=== PATIENT | female | born 1950 | race Caucasian/White ===

== ENCOUNTER 2020-12-04 00:09 | Emergency (ER) | payer MEDICARE ==
--- NOTE | 2020-12-04 00:48 | EDM.PDOC ---
ED HPI GENERAL MEDICAL PROBLEM - General Chief Complaint: General Stated Complaint: TROUBLE WALKING Time Seen by Provider: 12/04/20 00:25 Source of Information: Reports: Patient, EMS, Family History Limitations: Reports: No Limitations - History of Present Illness INITIAL COMMENTS - FREE TEXT/NARRATIVE: 70-year-old female with known significant scoliosis, was in her house tonight and stumbled slightly on a rug and then collapsed to the floor. She did not get hurt but she was having trouble getting up and needed assistance. She walked up to the car, claiming she "could not feel her legs". This has happened to her 4 times in the last year. They got to the car and then decided to call the ambulance. EMS did find her to be weak with standing but she was able to bear weight. On arrival she said she still does not feel right but she is moving her legs freely, can get off and on the exam bed, and has no obvious neuro deficits. Onset: Sudden (Symptoms started fairly suddenly about 3 hours ago) Worsens with: Reports: Other (Feels worse when trying to stand or walk) Associated Symptoms: Reports: Other (Patient has been drinking alcohol tonight) denies pain Pain Score (Numeric/FACES): 0 - Related Data Allergies Allergy/AdvReac Type Severity Reaction Status Date / Time No Known Allergies Allergy Verified 12/04/20 00:42 Home Meds: Home Meds . [Unable to Verify Home Med List] 12/04/20 [History] ED ROS GENERAL - Review of Systems Review Of Systems: See Below Constitutional: Denies: Fever, Chills HEENT: Reports: No Symptoms Respiratory: Denies: Shortness of Breath, Cough Cardiovascular: Denies: Chest Pain GI/Abdominal: Denies: Abdominal Pain, Nausea, Vomiting Musculoskeletal: Reports: Back Pain (Intermittent back discomfort) Skin: Reports: No Symptoms Neurological: Reports: Paresthesia (Numbness and lack of sensation in her lower extremities bilaterally) Psychiatric: Reports: No Symptoms ED EXAM, GENERAL - Physical Exam Exam: See Below Exam Limited By: No Limitations General Appearance: Alert, No Apparent Distress Eye Exam: Bilateral Eye: Normal Inspection Head: Atraumatic Neck: Supple, Non-Tender Respiratory/Chest: Lungs Clear Cardiovascular: Regular Rate, Rhythm GI/Abdominal: Soft, Non-Tender Back Exam: Other (Significant scoliosis is obvious) Extremities: Other (While lying on the exam bed, she can lift her legs up against gravity without any problem. She has no pain with internal or external rotation of the hips, no peripheral edema) Neurological: Alert, Oriented, No Motor/Sensory Deficits (She does have weakness of the legs when standing but not reproducible on objective exam) Psychiatric: Normal Affect, Normal Mood Skin Exam: Warm, Dry Course - Vital Signs Last Recorded V/S: Last Vital Signs Temp 98.2 F 12/04/20 00:46 Pulse 72 12/04/20 00:46 Resp 12 12/04/20 00:46 BP 112/58 L 12/04/20 00:46 Pulse Ox 97 12/04/20 00:46 - Orders/Labs/Meds Labs: Laboratory Tests 12/04/20 12/04/20 12/04/20 Range/Units 00:46 00:46 00:46 WBC 7.7 (4.5-11.0) K/uL RBC 4.11 (3.30-5.50) M/uL Hgb 12.4 (12.0-15.0) g/dL Hct 38.4 (36.0-48.0) % MCV 93 (80-98) fL MCH 30 (27-31) pg MCHC 32 (32-36) % Plt Count 196 (150-400) K/uL Neut % (Auto) 81.9 H (36-66) % Lymph % (Auto) 10.0 L (24-44) % [place] % (Auto) 7.0 H (2-6) % Eos % (Auto) 0.8 L (2-4) % Baso % (Auto) 0.3 (0-1) % Sodium 139 L (140-148) mmol/L Potassium 3.6 (3.6-5.2) mmol/L Chloride 103 (100-108) mmol/L Carbon Dioxide 22 (21-32) mmol/L Anion Gap 17.6 H (5.0-14.0) mmol/L BUN 20 H (7-18) mg/dL Creatinine 0.9 (0.6-1.0) mg/dL Est Cr Clr Drug Dosing 49.51 mL/min Estimated GFR (MDRD) > 60 (>60) Glucose 104 (74-106) mg/dL Calcium 9.0 (8.5-10.1) mg/dL Total Bilirubin 0.9 (0.2-1.0) mg/dL AST 25 (15-37) U/L ALT 32 (12-78) U/L Alkaline Phosphatase 77 (46-116) U/L Total Protein 7.3 (6.4-8.2) g/dL Albumin 3.7 (3.4-5.0) g/dL Globulin 3.6 H (2.3-3.5) g/dL Albumin/Globulin Ratio 1.0 L (1.2-2.2) Ethyl Alcohol 214 mg/dL - Re-Assessments/Exams Free Text/Narrative Re-Assessment/Exam: 12/04/20 06:01 CBC, CMP and EtOH were obtained. All labs were reassuring except her EtOH was 0.215. By discharge she was almost back to normal. This likely is a combination of her scoliosis bothering her lumbar nerves as well as her significant intoxication. I recommended rechecking with her primary provider to discuss an MRI or neurologic consultation but no further treatment or work-up is necessary tonight. Departure - Departure Time of Disposition: 01:26 Disposition: Home, Self-Care 01 Clinical Impression: Weakness of both lower extremities Alcohol intoxication Qualifiers: Complication of substance-induced condition: uncomplicated Qualified Code(s): F10.920 - Alcohol use, unspecified with intoxication, uncomplicated - Discharge Information Instructions: Weakness Referrals: PCP,None [Primary Care Provider] - Forms: ED Department Discharge Care Plan Goals: Rest tonight, increase activity as tolerated and consider rechecking in the next 3 to 4 days if not improving satisfactorily. An MRI of your lower back may be necessary if symptoms persist. Sepsis Event Note (ED) - Focused Exam Vital Signs: Vital Signs Temp Pulse Resp BP Pulse Ox 12/04/20 00:46 98.2 F 72 12 112/58 L 97 12/04/20 00:43 98.2 F 72 12 112/58 L 97
== END 2020-12-04 01:37 | disposition home or self-care (01) ==
LOC: JP.ED 00:09
DX: M62.81 Muscle weakness (generalized) (principal); F10.120 Alcohol abuse with intoxication, uncomplicated; Y90.7 Blood alcohol level of 200-239 mg/100 ml
CPT/HCPCS: 36415; 80053; 80307; 85025; 99285

== ENCOUNTER 2023-02-13 04:25 | Emergency (ER) | payer MEDICARE ==
[2023-02-13] MEDS ORDERED: Sodium Chloride 0.9% 1,000 ML IV ONE (04:51)
[2023-02-13 05:11] LABS: BASOPHILS ABSOLUTE AUTO 0.05 K/uL (0.00-0.10); BASOPHILS PERCENT AUTO 0.6 % (0.1-1.3); EOSINOPHILS ABSOLUTE AUTO 0.17 K/uL (0.00-0.40); EOSINOPHILS PERCENT AUTO 2.1 % (0.0-5.4); HEMATOCRIT 36.3 % (34.3-46.0); IMMATURE GRAN ABSOLUTE AUTO 0.03 K/uL (0.00-0.23); IMMATURE GRAN PERCENT AUTO 0.4 % (0.0-0.7); LYMPHOCYTES ABSOLUTE AUTO 0.99 K/uL (0.8-3.3); LYMPHOCYTES PERCENT AUTO 12.3 % (11.4-47.7); MEAN CORPUSCULAR HGB CONC 33.1 g/dL (31.6-35.5); MEAN CORPUSCULAR VOLUME 93.8 fL (81.4-99.0); MONOCYTES ABSOLUTE AUTO 0.57 K/uL (0.20-0.90); MONOCYTES PERCENT AUTO 7.1 % (3.3-12.6); NEUTROPHILS ABSOLUTE AUTO 6.21 K/uL (1.0-7.6); NEUTROPHILS PERCENT AUTO 77.5 % (40.0-78.1); PLATELET COUNT,PLT 202 K/uL (130-375); RED BLOOD CELL COUNT 3.87 M/uL (3.77-5.24)
[2023-02-13 05:32] LABS: A/G RATIO 1.1 (1.2-2.2); ALANINE AMINOTRANSFERASE,ALT 21 U/L (12-78); ALBUMIN 3.4 g/dL (3.4-5.0); ALKALINE PHOSPHATASE 82 U/L (46-116); ASPARTATE AMNIOTRANSFERASE,AST 20 U/L (15-37); BILIRUBIN TOTAL 0.7 mg/dL (0.2-1.0); BLOOD UREA NITROGEN,BUN 24 mg/dL (7-18); C-REACTIVE PROTEIN < 0.50 mg/dL (<0.50); CALCIUM 8.7 mg/dL (8.5-10.1); CARBON DIOXIDE,CO2 24 mmol/L (21-32); CHLORIDE,CL 109 mmol/L (100-108); CREATINE KINASE,CK 73 U/L (26-192); CREATININE 0.7 mg/dL (0.6-1.0); EST CRCL DRUG DOSING (CG) 67.01 mL/min; ESTIMATED GFR 91 mL/min (>60); GLUCOSE RANDOM 100 mg/dL (74-106); PROTEIN TOTAL,TP 6.5 g/dL (6.4-8.2); SODIUM,NA 145 mmol/L (140-148)
[2023-02-13] MEDS ORDERED: hydrOXYzine HCL 100 MG/2 ML SDV IM ONE (06:11)
[2023-02-13] MEDS ORDERED: Cyclobenzaprine 10 MG Tab PO ONE (08:20)
[2023-02-13] MEDS ORDERED: traMADol 50 MG Tab PO ONE (08:21)
== END 2023-02-13 11:05 | disposition still patient (30) ==
LOC: JP.ED 04:25
DX: M62.838 Other muscle spasm (principal); I10 Essential (primary) hypertension; E78.00 Pure hypercholesterolemia, unspecified; M19.90 Unspecified osteoarthritis, unspecified site; Z79.82 Long term (current) use of aspirin; Z79.899 Other long term (current) drug therapy; Z87.891 Personal history of nicotine dependence
CPT/HCPCS: 36415; 73502; 73552; 73560; 73700; 80053; 80307; 82550; 85025; 86140; 96360; 96361; 96372; 99284; A9270; J3410; J7030